=== PATIENT | female | born 1970 | race Two or more races ===

== ENCOUNTER 2018-04-25 01:08 | Emergency (ER) | payer OTHER ==
[~2018-04-25] VITALS: Ht 157.5 cm; Wt 59.9 kg
--- NOTE | 2018-04-25 01:34 | Emergency Room Report ---
History of Present Illness General Chief Complaint: To Be Triaged Source: Patient, Family Member Present Illness HPI Is a 47-year-old female with no history of high blood pressure. According to her , it would go up once in a while come back down. She presents with chief complaint of high blood pressure. Onset for last few hours. It was systolic in the 170s when 80 home. No fever chills but no nausea no vomiting. Because of the elevation, she is concerned. She denies any focal deficit. Denies any stress. Denies any new complaint. Does not take blood pressure medication. Does not check her blood pressure regularly. Allergies: Coded Allergies: No Known Allergies (Unverified , 04/25/18) Patient History Past Medical History: see triage record, old chart reviewed Past Surgical History: other Pertinent Family History: none Social History: Denies: smoking Immunizations: other Reviewed Nursing Documentation: PMH: Agreed; PSxH: Agreed Review of Systems Eye: Denies: eye pain, blurred vision ENT: Denies: ear pain, nose congestion, throat swelling Respiratory: Denies: cough, shortness of breath Cardiovascular: Denies: chest pain, palpitations Gastrointestinal: Denies: abdominal pain, diarrhea, nausea, vomiting Musculoskeletal: Denies: back pain, joint pain Skin: Denies: rash Neurological: Denies: headache, numbness Endocrine: Denies: increased thirst, increased urine Hematologic/Lymphatic: Denies: easy bruising All Other Systems: negative except mentioned in HPI Physical Exam vitals with high blood pressure Sp02 EP Interpretation: reviewed, normal General Appearance: well appearing, no apparent distress, alert Head: normocephalic, atraumatic Eyes: bilateral eye PERRL, bilateral eye EOMI ENT: hearing grossly normal, normal pharynx Neck: full range of motion, supple, no meningismus Respiratory: chest non-tender, lungs clear, normal breath sounds Cardiovascular #1: regular rate, rhythm, no murmur Gastrointestinal: normal bowel sounds, non tender, no mass, no organomegaly, no bruit, non-distended Musculoskeletal: back normal, gait/station normal, normal range of motion Psychiatric: mood/affect normal Skin: warm/dry Medical Decision Making Diagnostic Impression: Primary Impression: High blood pressure Qualified Codes: I10 - Essential (primary) hypertension Additional Impression: Dysfunctional uterine bleeding ER Course Patient presents with elevated blood pressure without diagnosis of hypertension. Without any dimension her blood pressures normal now. I suspect this may be secondary to anxiety and stress. She also complaining of having a menstrual period that's been lasting for 10 days. Her hemoglobin is stable and normal. We'll have her follow-up with [facility]ATOR and primary care doctor. I see no need to treat blood pressure right now. We'll treat the anxiety aspect of it. Lab Results Impression labs normal Status: improved Disposition: HOME, SELF-CARE Condition: Stable Scripts Buspirone Hcl* (BUSPAR*) 10 Mg Tablet 10 MG ORAL THREE TIMES A DAY, #15 TAB 0 Refills Prov: Jordan Nicole MD 04/25/18 Additional Instructions: Follow-up with your doctor in 7 days. You may need a referral to see a meeting planner for vaginal bleeding. Return if symptom worsen. Jordan Nicole MD Apr 25, 2018 01:34
[2018-04-25 01:52] VITALS: BP 166/82
--- NOTE | 2018-04-25 01:53 | NUR ---
ED Nurse Note: pt walked in c/o high blood pressure, pt states she has been having issue with high blood pressure this week, states she has been under stress and today it went up to sys 190. pt states she had JAIN before but denies at this time. denies sob/cp/n/v nor vision/hearing problems. pt AA&ox4, gcs=15, malay speaking, skin warm and dry, resp even and unlabored on RA, -n/v/d, ambulates w/ steady gait. will cont monitor. NSR on monitoring tech, VSS, BP 166/82.
--- NOTE | 2018-04-25 03:08 | NUR ---
ED Nurse Note: Urine and blood sample sent to lab.
[2018-04-25 03:11] LABS: APPEARANCE,URINE CLEAR; BASOPHILS % (AUTO) 1.5 % (0.0-2.0); BILIRUBIN, URINE NEGATIVE (NEGATIVE); COLOR,URINE PALE YELLOW; GLUCOSE, URINE (UA) NEGATIVE (NEGATIVE); HEMATOCRIT 42.7 % (37.0-47.0); HEMOGLOBIN 14.8 G/DL (12.0-16.0); KETONES,URINE NEGATIVE (NEGATIVE); LEUKOCYTE ESTERASE ,URINE NEGATIVE (NEGATIVE); LYMPHOCYTES % (AUTO) 27.2 % (20.0-45.0); MEAN CORPUSCULAR VOLUME 92 FL (80-99); MONOCYTES % (AUTO) 5.7 % (1.0-10.0); NEUTROPHILS % (AUTO) 64.6 % (45.0-75.0); NITRITE,URINE NEGATIVE (NEGATIVE); PH,URINE 7 (4.5-8.0); PLATELET COUNT 254 K/UL (150-450); PROTEIN,URINE NEGATIVE (NEGATIVE); RED BLOOD COUNT 4.67 M/UL (4.20-5.40); RED CELL DISTRIBUTION WIDTH 11.4 % (11.6-14.8); UROBILINOGEN,URINE NORMAL MG/DL (0.0-1.0); WHITE BLOOD COUNT 8.3 K/UL (4.8-10.8)
[2018-04-25 03:21] LABS: ANION GAP 10 mmol/L (5-15); BLOOD UREA NITROGEN 10 mg/dL (7-18); CALCIUM 9.2 MG/DL (8.5-10.1); CARBON DIOXIDE 28 MMOL/L (21-32); CHLORIDE 97 MMOL/L (98-107); CREATININE 0.7 MG/DL (0.55-1.30); POTASSIUM 3.3 MMOL/L (3.5-5.1); SODIUM 135 MMOL/L (136-145)
[2018-04-25 03:37] VITALS: BP 122/84
[2018-04-25] MEDS ORDERED: BUSPAR10 MG ORAL (03:39)
[2018-04-25 03:48] VITALS: BP 122/84
--- NOTE | 2018-04-25 03:49 | NUR ---
ER DISCHARGE NOTE: Patient is cleared to be discharged per ERMD, pt is aox4, on room air, with stable vital signs. pt was given dc and prescription instructions, pt was able to verbalize understanding, pt id band and iv site removed without complications. pt is able to ambulate with steady gait. pt took all belongings.
== END 2018-04-25 03:50 | disposition home or self-care (01) ==
LOC: EMR 02:00
DX: I10 Essential (primary) hypertension (principal); N93.8 Other specified abnormal uterine and vaginal bleeding
CPT/HCPCS: 36415; 80048; 81001; 81025; 85025; 99283